=== PATIENT | female | born 1995 | race Caucasian/White ===

== ENCOUNTER 2017-10-08 20:28 | Emergency (ER) | payer OTHER ==
[~2017-10-08] VITALS: Ht 160 cm; Wt 75.0 kg
[2017-10-08 20:43] VITALS: TEMP 97.5
[2017-10-08 21:33] LABS: COLLECTION METHOD CLEAN CATCH
[2017-10-08 21:39] LABS: MUCOUS Present /lpf; PH 6 (5-8); URINE APPEARANCE Clear; URINE BACTERIA None Seen /hpf; URINE BILIRUBIN Negative (NEGATIVE); URINE BLOOD Negative (NEGATIVE); URINE COLOR Yellow; URINE GLUCOSE Negative (NEGATIVE); URINE KETONE 2+ (NEGATIVE); URINE LEUKOCYTE ESTERASE Negative (NEGATIVE); URINE PROTEIN(semi-quant) Negative (NEGATIVE); URINE RBC 0-2 /hpf; URINE UROBILINOGEN Negative (NEGATIVE); URINE WBC 0-2 /hpf
[2017-10-08 21:59] LABS: BASO % 0.2 % (0.0-2.0); EOS # 0.1 (0.0-0.7); EOS % 1.1 % (0-4.0); GRAN # 4.8 (1.4-6.5); GRAN % 54.6 % (42.2-75.2); HEMATOCRIT 39.9 % (35.0-45.0); LYMPH # 3.2 (1.2-3.4); LYMPH % 36.6 % (20.0-51.0); MEAN CELL VOLUME 92 fl (80.0-95.0); MEAN CORPUSCULAR HEMOGLOBIN 32 pg (26.0-32.0); MEAN CORPUSCULAR HGB CONC 35 g/dl (33.0-37.0); MEAN PLATELET VOLUME 9.1 fl (7.4-10.4); MONO # 0.6 (0.1-0.6); MONO % 7.3 % (1.7-9.3); PLATELET COUNT 229 K/mm3 (130-400); RED BLOOD COUNT 4.36 M/mm3 (4.10-5.30); WHITE BLOOD COUNT 8.8 K/mm3 (4.8-10.8)
[2017-10-08 22:35] LABS: ADJUSTED CALCIUM 9.1 mg/dL (8.4-10.2); ALANINE AMINOTRANSFERASE 31 U/L (9-52); ALBUMIN 4.2 gm/dL (3.5-5.0); ALKALINE PHOSPHATASE 46 U/L (50-136); ANION GAP 10 mmol/L (7-16); BILIRUBIN,TOTAL 0.6 mg/dL (0.0-1.0); BLOOD UREA NITROGEN 10 mg/dL (7-17); CALCIUM 9.3 mg/dL (8.4-10.2); CARBON DIOXIDE 23 mmol/L (22-30); CHLORIDE 106 mmol/L (98-107); CREATININE, serum 0.66 mg/dL (0.52-1.25); GLUCOSE 84 mg/dL (74-106); POTASSIUM 3.8 mmol/L (3.4-5.0); SODIUM 139 mmol/L (137-145); TOTAL PROTEIN 7.2 gm/dL (6.4-8.2)
[2017-10-08 22:36] LABS: C-REACTIVE PROTEIN < 0.5 mg/dL (0.0-0.9)
[2017-10-09 00:19] VITALS: BP 117/72; PULSE 60
== END 2017-10-09 00:20 | disposition home or self-care (01) ==
LOC: COL.ER 20:28
PROVIDERS: Emergency Medicine; Nurse Practitioner Primary Care
DX: R11.2 Nausea with vomiting, unspecified (principal); R10.13 Epigastric pain; R10.12 Left upper quadrant pain; E05.00 Thyrotoxicosis with diffuse goiter without thyrotoxic crisis or storm; F17.210 Nicotine dependence, cigarettes, uncomplicated
CPT/HCPCS: J1170; J2270; J2405; J7030

== ENCOUNTER 2017-12-15 09:22 | Day surgery (SDC) | payer OTHER ==
[~2017-12-15] VITALS: Ht 160 cm; Wt 76.9 kg
[2017-12-15 10:16] VITALS: BP 111/71; PULSE 73; TEMP 98.6
[2017-12-15] MEDS ORDERED: PROTONIX 40MG T40 MG PO (12:14)
[2017-12-15 12:20] VITALS: BP 101/51; PULSE 76; TEMP 97.6
[2017-12-15 12:35] VITALS: BP 81/46; PULSE 64
[2017-12-15 12:50] VITALS: BP 94/54; PULSE 57
[2017-12-15 13:05] VITALS: BP 99/58; PULSE 60
== END 2017-12-15 13:05 | disposition home or self-care (01) ==
LOC: SDCO 09:22
DX: K59.00 Constipation, unspecified (principal); R13.10 Dysphagia, unspecified; K92.1 Melena; Z80.0 Family history of malignant neoplasm of digestive organs
CPT/HCPCS: OP; J2250; J2405; J3010; J7030